=== PATIENT | female | born 1990 | race Two or more races ===

== ENCOUNTER 2023-01-17 20:07 | Inpatient (IN) | payer BC ==
[~2023-01-17] VITALS: Ht 162.6 cm; Wt 88.5 kg
[2023-01-17 21:41] LABS: HEMATOCRIT 30.6 % (36.0-45.00); HEMOGLOBIN 10.2 g/dL (12.0-15.00); MEAN CELL VOLUME 84.9 fL (80.00-100.00); MEAN CORPUSCULAR HEMOGLOBIN 28.4 pg (27.00-32.0); MEAN CORPUSCULAR HGB CONC 33.4 g/dl (32.0-36.0); PH,URINE 6.5 (5.0-8.0); PLATELET COUNT 307 K/uL (150-450); RED CELL DISTRIBUTION WIDTH 14.6 % (11.5-14.5); URINE APPEARANCE Clear; URINE BILIRRUBIN Negative (NEGATIVE); URINE BLOOD Moderate; URINE COLOR Yellow; URINE GLUCOSE Negative (NEGATIVE); URINE LEUKOCYTE Negative; URINE NITRATE Negative; URINE PROTEIN 30 (NEGATIVE); URINE UROBILINOGEN 0.2 E.U./dl
[2023-01-17 21:44] LABS: URINE EPITHELIAL CELLS 22.7 uL (0.0-38.8); URINE RBC 9.7 uL (0.0-20.8); URINE WBC 15.9 uL (0.0-23.2)
[2023-01-17] MEDS ORDERED: PRENATAL TABLE1 EAC1 PO (21:51)
[2023-01-17 22:09] LABS: FIBRINOGEN 469 mg/dL (187.0-446.0); INR < 0.93; PARTIAL THROMBOPLASTIN TIME 27.3 SECONDS (22.0-34.0); PROTHROMBIN TIME 9.8 SECONDS (9.0-11.5)
[2023-01-17 22:11] LABS: ALBUMIN 2.7 gm/dL (3.4-5.0); BILIRUBIN TOTAL 0.29 mg/dL (0.3-1.2); CALCIUM 8.9 mg/dL (8.5-10.1); CREATININE SERUM 0.84 mg/dL (0.55-1.02); GFR 79.61; GLOBULINA 4.4 G/DL (2.4-3.5); POTASSIUM 4.2 mEq/L (3.5-5.1); TOTAL PROTEIN 7.1 gm/dL (6.4-8.2)
[2023-01-19 08:13] LABS: HEMATOCRIT 29.4 % (36.0-45.00); HEMOGLOBIN 9.7 g/dL (12.0-15.00); MEAN CORPUSCULAR HEMOGLOBIN 28.1 pg (27.00-32.0); MEAN CORPUSCULAR HGB CONC 33.1 g/dl (32.0-36.0); PLATELET COUNT 282 K/uL (150-450); RED BLOOD COUNT 3.46 M/uL (4.00-6.00); RED CELL DISTRIBUTION WIDTH 14.6 % (11.5-14.5)
[2023-01-21] MEDS ORDERED: IBUPROFEN800 MG PO (10:02)
== END 2023-01-21 14:42 | disposition home or self-care (01) | DRG 788 ==
LOC: LDR 20:07 → OB/GYN 01-19 01:19
PROVIDERS: ADMIT Obstetrics & Gynecology; ATTEND Obstetrics & Gynecology
PROC: 3E0P7VZ Introduction of Hormone into Female Reproductive, Via Natural or Artificial Opening (ICD-10-PCS; 2023-01-17)
PROC: 4A1HXCZ Monitoring of Products of Conception, Cardiac Rate, External Approach (ICD-10-PCS; 2023-01-17)
PROC: 3E033VJ Introduction of Other Hormone into Peripheral Vein, Percutaneous Approach (ICD-10-PCS; 2023-01-18)
PROC: 10D00Z1 Extraction of Products of Conception, Low, Open Approach (ICD-10-PCS; principal; 2023-01-19)
DX: O13.4 Gestational [pregnancy-induced] hypertension without significant proteinuria, complicating childbirth (principal); O62.0 Primary inadequate contractions; Z3A.38 38 weeks gestation of pregnancy; Z37.0 Single live birth; Z20.822 Contact with and (suspected) exposure to COVID-19